=== PATIENT | male | born 1980 | race Caucasian/White ===

== ENCOUNTER 2016-08-28 22:12 | Emergency (ER) | payer OTHER | END 2016-08-29 04:25 | disposition home or self-care (01) | LOC: ER1 22:12 | DX: L03.113 Cellulitis of right upper limb (principal); L03.011 Cellulitis of right finger; Z87.891 Personal history of nicotine dependence | CPT/HCPCS: 73130; 96372; 99283; J1100; J1885 ==

== ENCOUNTER 2021-07-07 07:47 | Emergency (ER) | payer OTHER ==
[~2021-07-07 07:47] MED LIST: ADIPEX-P37.5 M1 PO; BACTRIM DS TAB1 EACH PO; BACTROBAN CREAM15 GM TOP; KEFLEX CAP 500500 MG PO
[2021-07-07 08:31] LABS: HEMOGLOBIN 13.6 gm/dl (14.0-17.5); RED BLOOD COUNT 4.61 M/UL (4.20-5.50); WHITE BLOOD COUNT 8.1 K/UL (4.5-11.0)
[2021-07-07 08:55] LABS: BUN/CREATININE RATIO 12 (0-10)
[2021-07-07] MEDS ORDERED: HYDROCODON-ACE1 EAC4 PO (10:53)
== END 2021-07-07 11:20 | disposition home or self-care (01) ==
LOC: ER1 07:47
PROVIDERS: Emergency Medicine
DX: S22.32XA Fracture of one rib, left side, initial encounter for closed fracture (principal); S32.028A Other fracture of second lumbar vertebra, initial encounter for closed fracture; S32.038A Other fracture of third lumbar vertebra, initial encounter for closed fracture; F17.200 Nicotine dependence, unspecified, uncomplicated; X58.XXXA Exposure to other specified factors, initial encounter
CPT/HCPCS: 71111; 72131; 80053; 85025; 96374; 96375; 99284; J2270; J2405; Q9967